=== PATIENT | female | born 1990 | race Caucasian/White ===

== ENCOUNTER → 2021-09-05 | Outpatient (CLI) | payer OTHER | LOC: KOH-I 10:00 | DX: J01.00 Acute maxillary sinusitis, unspecified (principal); J34.2 Deviated nasal septum | CPT/HCPCS: 70486 ==

== ENCOUNTER → 2021-09-25 | Outpatient (CLI) | payer OTHER | LOC: LBRF 17:14 | DX: J32.9 Chronic sinusitis, unspecified (principal) | CPT/HCPCS: 87070; 87205 ==

== ENCOUNTER → 2021-10-05 | Outpatient (CLI) | payer OTHER | LOC: KOH-I 15:58 | DX: R55 Syncope and collapse (principal) | CPT/HCPCS: 70450 ==

== ENCOUNTER → 2021-10-17 | Outpatient (CLI) | payer OTHER | LOC: CATH 10-11 10:00 | DX: R55 Syncope and collapse (principal) ==

== ENCOUNTER → 2021-10-19 | Outpatient (CLI) | payer OTHER | LOC: HEART 5 09:54 | DX: R00.2 Palpitations (principal); R55 Syncope and collapse; R07.9 Chest pain, unspecified | CPT/HCPCS: 93306 ==

== ENCOUNTER → 2021-11-09 | Outpatient (CLI) | payer OTHER ==
[~2021-11-09] MED LIST: BUSPAR 10MG10 MG PO; FLONASE; PROPRANOLOL HCL60 MG PO; PROZAC20 MG PO; VITAMIN D3125 MCG PO; ZYRTEC10 M3 PO
== END ==
LOC: OPSV2 08:25
DX: Z01.810 Encounter for preprocedural cardiovascular examination (principal)
CPT/HCPCS: 93005

== ENCOUNTER → 2021-11-13 | Day surgery (SDC) | payer OTHER | END | disposition home or self-care (01) | LOC: OR 06:45 | DX: J32.9 Chronic sinusitis, unspecified (principal); J34.3 Hypertrophy of nasal turbinates; J34.89 Other specified disorders of nose and nasal sinuses; J34.2 Deviated nasal septum; R07.81 Pleurodynia; R07.82 Intercostal pain; I10 Essential (primary) hypertension; J44.9 Chronic obstructive pulmonary disease, unspecified; K21.9 Gastro-esophageal reflux disease without esophagitis; M79.7 Fibromyalgia; F41.9 Anxiety disorder, unspecified; F32.A Depression, unspecified; Z88.8 Allergy status to other drugs, medicaments and biological substances; Z90.710 Acquired absence of both cervix and uterus; Z90.49 Acquired absence of other specified parts of digestive tract; Z79.899 Other long term (current) drug therapy; Z87.891 Personal history of nicotine dependence | CPT/HCPCS: C1726; J0171; J1100; J1956; J2001; J2250; J2310; J2405; J2704; J2710; J3010; J7030; J7120 ==

== ENCOUNTER 2021-11-17 13:32 | Emergency (ER) | payer OTHER ==
[2021-11-17 15:45] LABS: HEMOGLOBIN 15.5 gm/dl (12.3-15.3); RED BLOOD COUNT 4.88 M/UL (4.00-5.10)
[2021-11-17 16:16] LABS: BUN/CREATININE RATIO 19 (0-10)
== END 2021-11-17 19:07 | disposition home or self-care (01) ==
LOC: ER1 13:32
PROVIDERS: Emergency Medicine
DX: L03.213 Periorbital cellulitis (principal); R94.5 Abnormal results of liver function studies; Z98.890 Other specified postprocedural states
CPT/HCPCS: 70470; 70487; 80053; 85025; 85652; 86140; 87040; 96374; 96375; 99284; J1100; J3370; J7030; Q9967